=== PATIENT | female | born 1980 | race Caucasian/White ===

== ENCOUNTER 2024-04-10 12:54 | Emergency (ER) | payer OTHER, SELFPAY ==
[2024-04-10 13:09] VITALS: BP 122/70; PULSE 93; RESP 18; TEMP 37.8; O2SAT 100
[2024-04-10 13:11] VITALS: BP 122/70; PULSE 93; RESP 18; TEMP 37.8; O2SAT 100
--- NOTE | 2024-04-10 13:25 | ED.EXTPRO ---
HPI - Extremity Problem General Chief complaint: Extremity Problem,Nontraumatic Stated complaint: knee injury Time Seen by Provider: 04/10/24 13:25 Source: patient Mode of arrival: ambulatory Limitations: no limitations History of Present Illness HPI Narrative: 43-year-old female presents with complaint of left knee pain. Patient riding on a lawnmower that came to a sudden stop when it hit a hole patient stopped herself from falling off and stepped down hard onto left foot causing left knee to twist. Patient reports taking ibuprofen prior to arrival. States pain is better since resting in wheelchair. Ambulatory with slight limp. All systems reviewed and negative except as noted above. Related Data Home Medications Medication Instructions Recorded Confirmed No Home Medications 04/10/24 04/10/24 Allergies Allergy/AdvReac Type Severity Reaction Status Date / Time Sulfa (Sulfonamide Allergy Unknown Verified 04/10/24 13:10 Antibiotics) Review of Systems Review of Systems: CONSTITUTIONAL: Denies fever, chills, or sweats. EYES: Denies visual changes, redness, or discharge. ENT: Denies rhinorrhea, congestion, sore throat, or otalgia. CARDIOVASCULAR: Denies chest pain, palpitations, or edema. RESPIRATORY: Denies cough or dyspnea. GASTROINTESTINAL: Denies abdominal pain, nausea, vomiting, or diarrhea. GENITOURINARY: Denies dysuria or hematuria. SKIN: Denies rash or itching. MUSCULOSKELETAL: Denies back pain, joint pain, or myalgia. Reports pain to left knee. NEUROLOGIC: Denies headache, numbness, or weakness. PSYCHIATRIC: Denies anxiety or depression. All other systems reviewed are negative, except as documented in HPI. PMFSH Comments At time of signature, agree with nursing past medical, surgical, social and family history. There is no relevant family history pertinent to the presenting complaint. Exam Narrative: GENERAL: This is a well-nourished, well-developed patient, in no apparent distress. HEAD: normocephalic, atraumatic. EYES: PERRL. Sclera clear/white. Vision is grossly intact. EARS: External ears normal NOSE: External nose normal NECK: Neck supple, non-tender without lymphadenopathy, masses or thyromegaly. CARDIOVASCULAR: Regular rate and rhythm without murmurs, gallops, or rubs. RESPIRATORY: Clear to auscultation. Breath sounds equal bilaterally. No wheezes, rales, or rhonchi. SKIN: warm, Dry, intact with no suspicious lesions or rash, good texture and turgor. NEURO: awake, alert, and oriented to person, place and time. There were no obvious focal neurologic abnormalities. EXTREMITIES: No tenderness on palpation of left knee. Anterior and posterior drawer testing negative. Normal range of motion and distal neurovascularly intact. Course Course Level of Care: Express Care Visit Vital Signs Vital signs: Vital Signs Temperature 37.8 C H 04/10/24 13:09 Pulse Rate 93 04/10/24 13:09 Respiratory Rate 18 04/10/24 13:09 Blood Pressure 122/70 04/10/24 13:09 Pulse Oximetry 100 04/10/24 13:09 Oxygen Delivery Room Air 04/10/24 13:09 Temperature 37.8 C H 04/10/24 13:11 Pulse Rate 93 04/10/24 13:11 Respiratory Rate 18 04/10/24 13:11 Blood Pressure 122/70 04/10/24 13:11 Pulse Oximetry 100 04/10/24 13:11 Oxygen Delivery Room Air 04/10/24 13:11 Reviewed MDM - Extremity (Nontraumatic) MDM Narrative Medical decision making narrative: x-ray of left knee normal. Discussed results with patient. Patient placed in Fox wrap. Recommend follow-up with primary care physician if pain is not improving. Patient is aware of diagnosis, understands and agrees to treatment plan. Anticipatory guidance given. Patient agrees to follow-up as directed and is aware of reasons to seek care at the emergency department. Portions of this record may have been created with voice recognition software Imaging Data My impression: Agree with radiologist R
== END 2024-04-10 13:52 | disposition home or self-care (01) ==
PROVIDERS: Emergency Provider Nurse Practitioner Family
DX: S83.92XA Sprain of unspecified site of left knee, initial encounter (principal); X50.9XXA Other and unspecified overexertion or strenuous movements or postures, initial encounter
CPT/HCPCS: 73562; 99203; G0463

== ENCOUNTER 2024-10-10 15:32 | Emergency (ER) | payer OTHER, SELFPAY ==
--- NOTE | 2024-10-10 15:33 | ED_ITS ---
HPI - URI/Sore Throat General Chief Complaint: Upper Respiratory Infection Stated Complaint: sinus infection Time Seen by Provider: 10/10/24 15:33 Source: patient Mode of arrival: ambulatory Limitations: no limitations History of Present Illness HPI Narrative: Lily is a 43-year-old female patient presenting to the clinic today with complaints sinus pressure, nasal congestion, and headache. She reports her symp toms have been going on for for over 1 week. Is blowing out green nasal drainage. Has been taking Mucinex D as well as Tylenol and ibuprofen for her symptoms. MD elicited complaint: rhinorrhea, nasal congestion and sinus pain Related Data Allergies Allergy/AdvReac Type Severity Reaction Status Date / Time Sulfa (Sulfonamide Allergy Unknown Verified 10/10/24 15:40 Antibiotics) Review of Systems Review of Systems: Pertinent positives per HPI. Patient denies any fever, chills, rash, headache, visual changes, dizziness, cough, shortness of breath, chest pain, palpitations, nausea, vomiting, diarrhea, constipation, abdominal pain, or any urinary issues. PMFSH Comments At the time of my signature, I reviewed and agree with the nursing past medical, surgical, social, and family history. There is no relevant family history pertinent to the patient complaint. Exam Narrative: General: Well-developed, well nourished, in no apparent distress Head: Normocephalic, atraumatic Eyes: Pupils equally round and reactive to light bilaterally, EOM intact, sclera and conjunctive clear, no discharge, lids normal Ears: TMs intact and congested, ear canals clear, no drainage, grossly hearing normal. Nose: Nares patent, green nasal discharge, moderate inflammation, maxillary sinus tenderness. Mouth: Oral pharynx without lesions or masses, good dentition, MMM. Postnasal drip Neck: Supple, trachea midline, no enlargement of anterior or posterior cervical nodes, no thyroid masses or goiter palpable. Cardio: Regular rate and rhythm, s1 and s2 normal, no murmur appreciated. Resp: Clear to auscultation bilaterally, no rhonchi, rales, wheezing or rubs Course Course Emergency Course: Portions of this record may have been created with voice recognition software. Level of Care: Express Care Visit Vital Signs Vital signs: Vital Signs Temperature 36.2 C L 10/10/24 15:39 Pulse Rate 70 10/10/24 15:39 Respiratory Rate 18 10/10/24 15:39 Blood Pressure 124/85 10/10/24 15:39 Pulse Oximetry 100 10/10/24 15:39 Oxygen Delivery Room Air 10/10/24 15:39 Temperature 36.2 C L 10/10/24 15:39 Pulse Rate 70 10/10/24 15:39 Respiratory Rate 18 10/10/24 15:39 Blood Pressure 124/85 10/10/24 15:39 Pulse Oximetry 100 10/10/24 15:39 Oxygen Delivery Room Air 10/10/24 15:39 Vital signs reviewed MDM - URI/Sore Throat MDM Narrative Medical decision making narrative: At the time of visit patient is resting comfortably on the exam table. Patient appears to be nontoxic. Plan: I suspect patient has acute bacterial rhinosinusitis. Prescription for Augmentin and prednisone was sent to the pharmacy. Supportive measures were discussed with the patient and they voiced understanding discharge instructions and agrees to treatment plan. Return precautions reviewed Differential Diagnosis Differential diagnosis: Likely upper respiratory infection, otitis media, sinusitis, viral infection, bronchitis, influenza, pharyngitis and other (COVID) Discharge Plan Discharge Clinical Impression: Acute bacterial rhinosinusitis Patient Disposition: Home, Self-Care Condition: Stable Instructions: Antibiotic Form, Rhinosinusitis (ED) Additional Instructions: Take prescription medications only as prescribed-Augmentin and prednisone Increase fluids and stay well hydrated Tylenol/motrin for pain/fever Flonase and OTC antihistamines as directed Vicks vapor rub to open sinuses Sinus rinses for congestion Cepacol spray, cough drops, throat lozenges, warm tea with honey/lemon, gargle salt water to soothe throat BRAT diet for diarrhea Clear liquids x 24 hours then advance as tolerated for nausea/vomiting Go to the ED if you develop a worsening in your condition- high fever not controlled by Tylenol or Motrin, dehydration, weakness, lethargy, shortness of breath, or chest pain. Follow up with your PCP in 3-5 days if symptoms persist. Patient Language: Ivorian Prescriptions: New prednisone 20 mg tablet 40 mg PO DAILY 5 Days Qty: 10 0RF amoxicillin-pot clavulanate 875-125 mg tablet 1 tablet PO Q12H 10 Days Qty: 20 0RF Follow-up/Referrals: Marco A,Roma Shanks MD [Primary Care Provider] - Time of Disposition: 15:45 Quality NIHSS Nursing Documentation ED NIHSS nursing documentation: reviewed/agree
[2024-10-10 15:39] VITALS: BP 124/85; PULSE 70; RESP 18; TEMP 36.2; O2SAT 100
--- OUTSIDE RECORDS SUMMARY | 2024-10-10 16:40 | XMS_ITS | Encounter Summary ---
Author Organization [facility] Address [address] [place] [id number] Care Team Providers Care [facility] Nurse Practitioner Name Role Phone Roma Strickland MD Primary Care Provider + Encounter Details Date Type Department Care Team (Late Contact Info) Description 06/20/2024 [email or web address] Message Enc [facility] [address] [place], [place] [phone] [place] [address] [place], [place] [phone] MRI Social History Tobacco Use Types Packs/Day Years Used Date Smoking Tobacco: Never Passive Smoke Exposure: Past Smokeless Tobacco: Never Alcohol Use Standard Drinks/Week Comments Yes 5 (1 standard drink = 0.6 oz pur e alcohol) socially PHQ-2 Answer Date Recorded Patient Health Questionnaire-2 Score 0 03/07/2024 Comments No Sex and Gender Information Value Date Recorded Sex Assigned at Not on file Legal Sex Female 7:35 PM CDT Gender Identity Not on file Sexual Orientation Not on file 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 Not on file Not on file Not on f ile documented as of this encounter Plan of Treatment Upcoming Encounters Date Type Department Care Team (Late Contact Info) Description 03/11/2025 9:00 AM CDT Allied Health/Nurse Visit [facility] Family Medicine [facility] [address] [place], [place] [id number] Roma Strickland MD [address] [place], [place] [phone] 03/18/2025 8:00 AM CDT Office Visit [facility] Family Medicine - [facility] [address] [place] [phone] Roma Strickland MD [address] [place] [phone] documented as of this encounter Visit Diagnoses Not on filedocumented in this encounter Care Teams [facility] Nurse Practitioner Relationship Specialty Start Date End Date Roma Strickland MD [address] [place] [phone] PCP - General FAMILY PRACTICE 03/07/24 documented as of this encounter
--- OUTSIDE RECORDS SUMMARY | 2024-10-10 16:41 | XMS_ITS | Clinical Summary ---
Author Organization [facility] Address [address] [place] [address] Care Team Providers Care Boat Hop Name Role Phone Roma Kothari MD Primary Care Provider + Allergies Active Allergy Reactions Criticality Noted Date Comments Sulfa Antibiotics Unknown 04/21/2006 As a child updated [id number] tldn Medications fluticasone propionate (FLONASE) 50 MCG/ACT nasal spray 1 spray by Nasal route daily. Active Naproxen Sodium (ALEVE) 220 MG Cap 04/11/2024 Active Active Problems Problem Noted Date Diagnosed Date Left knee pain 06/04/2024 Encounters Date Type Department Care Team Description 09/02/2024 Telephone [facility] Family Medicine [facility] [address] [facility] [address] [place] [address] Roma Kothari MD Referral Request 08/08/2024 7:30 AM FIRE LOOKOUT - 08/08/2024 11:59 PM FIRE LOOKOUT Hospital Encounter [facility] [address] [place] [address] Barby Cates, PT Roma Kothari MD Knee Pain Discharge Disposition: Home or Self Care (Routine Discharge) 08/08/2024 Travel 07/29/2024 8:58 AM FIRE LOOKOUT - 07/29/2024 11:59 PM FIRE LOOKOUT Hospital Encounter [facility] [address] [place], [place] [id number] Barby Cates PT Roam Kothari MD Knee Pain Discharge Disposition: Home or Self Care (Routine Discharge) 07/29/2024 Travel 07/25/2024 7:27 AM FIRE LOOKOUT - 07/25/2024 11:59 PM FIRE LOOKOUT Hospital Encounter [facility] [address] [place] [address] Barby Cates, PT Roma Kothari MD Knee Pain Discharge Disposition: Home or Self Care (Routine Discharge) 07/25/2024 Travel 07/23/2024 9:00 AM FIRE LOOKOUT Office Visit [facility] Orthopedic & Sports Medicine - [address] [address] Everardo Abrams MD New Patient (Lt knee pain) 07/23/2024 Travel 07/22/2024 7:30 AM FIRE LOOKOUT - 07/22/2024 11:59 PM FIRE LOOKOUT Hospital Encounter [facility] [address] [place] [address] Barby Cates, PT Roma Kothari MD Knee Pain Discharge Disposition: Home or Self Care (Routine Discharge) 07/22/2024 Travel 07/18/2024 8:19 AM FIRE LOOKOUT - 07/18/2024 11:59 PM FIRE LOOKOUT Hospital Encounter [facility] [place] [address] [place] [address] Roma Kothari MD Discharge Disposition: Home or Self Care (Routine Discharge) 07/18/2024 7:25 AM FIRE LOOKOUT - 07/18/2024 8:18 AM FIRE LOOKOUT Hospital Encounter [facility] [address] [place] [address] Sherie Hinson, PT Roma Kothari MD Knee Pain Discharge Disposition: Home or Self Care (Routine Discharge) 07/18/2024 Travel 07/15/2024 7:27 AM FIRE LOOKOUT - 07/15/2024 11:59 PM FIRE LOOKOUT Hospital Encounter [facility] [address] [place] [address] Babry Cates, PT Roma Kothari MD Knee Pain Discharge Disposition: Home or Self Care (Routine Discharge) 07/15/2024 Travel from Last 3 Months Immunizations Name Administration Dates Next Due Influenza (FluMist) 07/17/2014,06/28/2006 Influenza (Generic) 05/28/2013, 2,06/02/2011,06/21/2010,2004 Influenza Adult (Generic) 06/07/2023,04/2022,06/08/2021,05/15/2020,2018,06/08/2018,05/23/2017 [place] Encephalitis 10/11/2016 Tdap (Boostrix) 03/07/2024 Family History Medical History Relation Comments No Known Problems Child 1 No Known Problems Child 2 No Known Problems Child 3 Diabetes Father Hypertension Father Hypertension Mother Diabetes Paternal Grandfather Breast Cancer Paternal Grandmother Relation Status Comments Child 1 Alive Child 2 Alive Child 3 Alive Father Alive Mother Alive Paternal Grandfather Paternal Grandmother Social History Tobacco Use Types Packs/Day Years Used Date Smoking Tobacco: Never Passive Smoke Exposure: Past Smokeless Tobacco: Never Tobacco Cessation:Counseling Given: No Alcohol Use Standard Drinks/Week Comments Yes 5 [...] Not on file Not on f ile Last Filed Vital Signs Vital Sign Reading Time Taken Comments Blood Pressure 127/82 07/23/2024 8:50 AM FIRE LOOKOUT Pulse 54 07/23/2024 8:50 AM FIRE LOOKOUT Temperature 36.7 C (98 F) 05/24/2024 10:11 AM CDT Respiratory Rate 18 05/24/2024 10:11 AM CDT Oxygen Saturation 97% 05/24/2024 10:11 AM CDT Inhaled Oxygen Concentration - - Weight 64.1 kg (141 lb 6.4 oz) 07/23/2024 8:50 A M FIRE LOOKOUT Height 162.6 cm (5' 4 ) 07/23/2024 8:50 AM FIRE LOOKOUT Body Mass Index 24.27 07/23/2024 8:50 AM FIRE LOOKOUT Plan of Treatment Upcoming Encounters Date Type Department Care Team (Late st Contact Info) Description 03/11/2025 9:00 AM CDT Allied Health/Nurse Visit [facility] [address] [place] [address] [address] [place] [address] Roma Kothari MD [address] [place] [phone] 03/18/2025 8:00 AM CDT Office Visit [facility] [address] [facility] [address] [place], [place] [id number] Roma Kothari MD [address] [facility] [address] [place] [phone] Health Maintenance Due Date Last Done Comments Hepatitis C 2000 Hepatitis B Vaccines (1 of 3 - 19+ 3-dose series) 2001 COVID-19 Vaccine ( season) 2024 Influenza Adult (#1) 2024 06/07/2023, 06/15/2022, 06/08/2021, Additional history exists PHQ-2 (Physician [place]) 08/07/2024 03/07/2024 Annual Physical 03/07/2025 03/07/2024 Mammogram Screening 03/27/2026 03/27/2024 Cervical Cancer Screening Pap Smear (Age 30 to 64) Every 3 Years 03/07/2027 03/07/2024 Cervical Cancer Screening Pap with HPV Testing (Age 30 to 64) Every 5 Years 03/07/2027 03/07/2024 Cervical Cancer Screening with HPV 03/07/2027 DTaP, Tdap and Td Vaccines (2 - Td or Tdap) 03/07/2034 03/07/2024 HPV Vaccines Aged Out No longer eligi ble based on patient's age to complete this topic Meningococcal B Vaccine Aged Out No l onger eligible based on patient's age to complete this topic Meningococcal Vaccine Aged Out No minal yady eligible based on patient's age to complete this topic Pneumococcal Vaccine: Pediatrics (0 to 5 Years) and At-Risk Patients (6 to 64 Years) Aged Out No longer eligible based on patient's age to complete this topic RSV Immunizations Under 20 Months Aged Out No longer eligible based on patient's age to complete this topic Procedures Procedure Name Priority Date/Time Associated Diagnosis Comments MRI KNEE LT WO CON Routine 07/18/2024 9: 37 AM FIRE LOOKOUT Acute pain of left knee MG SCREENING W AYAZ BARBARA DIGI Routine 03/27/2024 12:52 PM CDT Encounter for mammogram to establish baseline mammogram CYTOPATH CERV/VAG THIN LAYER Routine 03/07/2024 2:32 PM CDT HUMAN PAPILLOMAVIRUS, HIGH-RISK TYPES Routine 03/07/2024 8:00 AM CDT from Last 3 Months or Most Recently Relevant to Health Maintenance Results * MRI KNEE LT WO CON (07/18/2024 9:37 AM FIRE LOOKOUT) Anatomical Region Laterality Modality Knee Magnetic Resonan ce 07/18/2024 10:4 8 AM FIRE LOOKOUT Impressions 07/18/2024 11:06 AM FIRE LOOKOUT IMPRESSION: Probable occult oblique linear tear to the inferior surface body lateral meniscus. Small joint effusion. Small popliteal cyst. Ordered By: ROMA KOTHARI Interpreted By: Deejay Rivas MD, 07/18/2024 10:48 AM Narrative 07/18/2024 11:06 AM FIRE LOOKOUT [facility] [address] [place] [address] 07/18/2024, 9:32 AM. HISTORY: Twisting injury when fell off the lungs more April 2024. Medial and posterior left knee pain. Unable to fully flex. EXAM: MRI left knee without contrast. MR imaging was performed without contrast with images submitted for review in the axial, the coronal and the sagittal planes. No comparison. FINDINGS: Detail is suboptimal. On the fat sat proton density coronal plane image there is a suggestion of an oblique tear in the body of the medial meniscus extending to the inferior surface image 18. This is not confirmed on sagittal plane imaging. No other evidence of meniscal tear. No thinning of the articular cartilage on the femoral condyles, tibial plateaus nor dorsal patellar surfaces. The cruciate ligaments, medial collateral ligament, distal quadriceps tendon and patellar tendons are intact and normal in appearance. Tiny joint effusion. Very small popliteal cyst on the deep and medial surfaces of the medial head of the gastrocnemius. No marrow replacement or gross bone destruction distal femur nor proximal tibia. No periarticular soft tissue mass. Procedure Note Deejay Rivas MD - 07/18/2024 [facility] [address] [place] [address] 07/18/2024, 9:32 AM. HISTORY: Twisting injury when fell off the lungs more April 2024.Medial and posterior left knee pain. Unable to fully flex. EXAM: MRI left knee without contrast. MR imaging was performed without contrast with images submitted for reviewin the axial, the coronal and the sagittal planes. No comparison. FINDINGS: Detail is suboptimal. On the fat sat proton density coronalplane image there is a suggestion of an oblique tear in the body of themedial meniscus extending to the inferior surface image 18. This is notconfirmed on sagittal plane imaging. No other evidence of meniscal tear.No thinning of the articular cartilage on the femoral condyles, tibialplateaus nor dorsal patellar surfaces. The cruciate ligaments, medialcollateral ligament, distal quadriceps tendon and patellar tendons areintact and normal in appearance. Tiny joint effusion. Very small poplitealcyst on the deep and medial surfaces of the medial head of thegastrocnemius. No marrow replacement or gross bone destruction distalfemur nor proximal tibia. No periarticular soft tissue mass. IMPRESSION: Probable occult oblique linear tear to the inferior surface body lateralmeniscus. Small joint effusion. Small popliteal cyst. Ordered By: ROMA KOTHARI Interpreted By: Deejay Rivas MD, 07/18/2024 10:48 AM us Roma Kothari MD MRI Final Re sult * MG SCREENING W AYAZ BARBARA DIGI (03/27/2024 12:52 PM CDT) Anatomical Region Laterality Modality Breast Bilateral Mammography 03/27/2024 3:58 PM CDT Impressions 03/27/2024 4:01 PM CDT IMPRESSION: No suspicious mammographic findings. Recommendation: 1. Routine Screening, Bilateral Assessment: ACR BI-RADS 2 - BENIGN FINDING(S) Ordered By: ROMA KOTHARI Interpreted By: Trevin Green MD, 03/27/2024 3:58 PM Narrative 03/27/2024 4:01 PM CDT Examination: Screening bilateral mammogram Exam Date: 03/27/2024 12:38 PM Clinical history: Routine screening. Baseline exam. Family history of breast cancer in her grandmother. Comparison: None. Technique: Digital screening mammography of both breasts was performed. Breast tomosynthesis acquisitions were obtained and reviewed. This study was read with the assistance of a computer-aided detection system. Tissue density: There are scattered areas of fibroglandular density. Findings: The breast parenchymal pattern is grossly symmetric. There are no suspicious calcifications, masses, architectural distortion or skin thickening on either side. Procedure Note Trevin Green MD - 03/27/2024 Examination: Screening bilateral mammogram Exam Date: 03/27/2024 12:38 PM Clinical history: Routine screening. Baseline exam. Family history ofbreast cancer in her grandmother. Comparison: None. Technique: Digital screening mammography of both breasts was performed.Breast tomosynthesis acquisitions were obtained and reviewed. This studywas read with the assistance of a computer-aided detection system. Tissue density: There are scattered areas of fibroglandular density. Findings: The breast parenchymal pattern is grossly symmetric. There areno suspicious calcifications, masses, architectural distortion or skinthickening on either side. IMPRESSION: No suspicious mammographic findings. Recommendation: 1. Routine Screening, Bilateral Assessment: ACR BI-RADS 2 - BENIGN FINDING(S) Ordered By: ROMA KOTHARI Interpreted By: Trevin Green MD, 03/27/2024 3:58 PM us Roma Kothari MD MAMMO Final Re sult * Cytopath Cerv/Vag Thin Layer (03/07/2024 2:32 PM CDT) THIN PREP PAP [address] [id number] Department of Pathology Pathology Report CERVICAL/VAGINAL PAP SMEAR REPORT Name: ANGELICA KEVIN Age: 3 1980 (Age: 43) Location: [facility] Sex: F Collected Date: 03/07/2024 Hospital #: [id number] Date Received: 03/08/2024 Date Reported: 03/15/2024 Provider: ROMA KOTHARI MD INTERPRETATION ABNORMAL RESULT CERVICAL/ENDOCERVI KIERA, PAP TEST: SATISFACTORY FOR EVALUATION. ENDOCERVICAL/TRANS FORMATION ZONE COMPONENT PRESENT. ATYPICAL SQUAMOUS CELLS OF UNDETERMINED SIGNIFICANCE. NEGATIVE FOR HIGH RISK HPV. The FDA approved Aptima HPV assay is an in vitro nucleic acid amplification test for the qualitative detection of E6/E7 viral messenger RNA (mRNA) from 14 high-risk types of human papillomavirus (HPV) in cervical specimens. The high-risk HPV types detected by the assay include: 16,18,31,33,35,39, 45,51,52,56,58,59, 66, and 68. Electronically Signed Out JENNIFER Paulson, CT (ASCP) CLINICAL HISTORY (Z12.4) CERVICAL CANCER SCREENING ROUTINE PAP TEST SCREENING ThinPrep Pap Test with HR HPV testing in patient > 30 years requested. Date of Last Menstrual Period: 02/15/2024 Menstrual Status: Regular SPECIMEN SUBMITTED CERVICAL/ENDOCERVI KIERA Specimen Received:1 Thin Prep Vial, Image Assisted Pap (SMD) GROSS DESCRIPTION Initial cytologic screening was performed at [facility] [address] [place] [address]. This case was interpreted and signed out at [facility], [address] [facility], [place] [address]. Please note: The Pap smear is not a diagnostic test. It is a screening test. Negative results on combined screening (Pap test and HPV-DNA) have a high negative predictive value (99.1-100 percent) for cervical cancer. The pap test is not effective in detecting cervical adenocarcinoma. [facility] 03/07/2024 2:32 PM CDT 03/08/2024 2:32 PM CDT Comment:CERVICAL/ENDOCERVICA L Roma Kothari MD PATHOLOGY/CYTOLOGY ORDER CEM Final Result Performing Organization Address City/[facility]/ZIP Co de Phone Number [facility] [address] [place] [address], [place] [phone] * HUMAN PAPILLOMAVIRUS, HIGH-RISK TYPES (03/07/2024 8:00 AM CDT) SPEC DESCRIPTION ENDOCERVIX 03/11/2024 9:49 AM CDT [facility] HPV DNA HIGH RISK NEGATIVE NEGATIVE 03/12/2024 12:44 AM CDT [facility] Comment:SEE CYTOLOGY REPORT 03/07/2024 8:00 AM CDT Roma Kothari MD PATHOLOGY/CYTOLOGY ORDER CEM Final Result [facility] [address] [place] [address], [place] [phone] from Last 3 Months or Most Recently Relevant to Health Maintenance Insurance Care Teams Boat Hop Relationship Specialty Start Date End Date Roma Kothari MD [address] [place] [id number] PCP - General FAMILY PRACTICE 03/07/24
--- OUTSIDE RECORDS SUMMARY | 2024-10-10 16:41 | XMS_ITS | Continuity of Care Document ---
Author Name [facility] Organization [facility] Care Team Providers Care Take Out Waitress Name Role Phone [facility] Unavailable Unavailable Problems Combined list of problems from Department of Defense and Veterans Affairs facilities. It does not include entries that were removed or entered in error. Problem Status Onset Date Problem Type Date of Resolution Comments Source Administrative Evaluation Services Inactive Condition DoD Inactive Condition [facility] Outpatient Physician Consultation Active Condition DoD cough Active Condition DoD pneumonia Inactive Condition DoD sinusitis acute maxillary Inactive Condition DoD nasal passage blockage (stuffiness) Active Condition [facility] acute bronchitis Inactive Condition [facility] visit for: administrative purpose Inactive Condition [facility] Test Positive Inactive Condition [facility] Test Inactive Condition DoD nausea with vomiting Inactive Condition [facility] Gynecologic Services Intrauterine Device (IUD) Removal Inactive Condition [facility] sinusitis Active Condition [facility] urticaria Inactive Condition no clear etiology. no associated angioedema/joni phylaxis. OCP was changed 2 weeks prior to onset so I changed back. zyrtec QHS for sx relief/will help if IgE medicated. Allergy consult to further assess. DoD Inquiry And Counseling: Contraceptive Practices Active Condition refill OCP. no contraindicati ons. pap current. [facility] routine gynecological exam with cervical pap smear Inactive Condition 1- Pap exam was well tolerated. No further concerns noted by patient DoD TMJ pain Active Condition pt had jaw pop last week, and had pain, some pain on right side with jaw opening. advised to limit trying to pop jaw and take nsaids to reduce inflammation. likely will resolve on its own.. Pt ground teeth during college a lot, likely part of it.No trauma or damage to jaw that she can remember. DoD visit for: follow-up exam Inactive Condition computer woul d not let me code v53.1-fitting/ SCLRx DoD astigmatism regular Active Condition Do D refractive error - myopia Active Condition [facility] visit for: routine eye exam Inactive Condition DoD visit for: contraceptive surveillance Active Condition Planned Pap Smear in Sep-Oct 2006. DoD tuberculosis latent Active Condition pt finished 9 months of INH/pyridoxine after +ppd in March 2006. started meds in 21 Apr 2006. has not missed doses, minimal alcohol (once a month), no signs or symptoms. advised that she may drink this weekend as last dose was last night. will get final LFTs to eval for any liver damage, none throughout per pt. normal exam. cleared. DoD Allergies, Adverse Reactions, Alerts Combined list of allergies from Department of Defense and Veterans Affairs facilities. It does not include entries that were removed or entered in error. Substance Category Reaction Severity Reaction type Status Date Reported Comments Source Sulfa-Drug s Drug allergy (disorder) Unknown active 6 [employer] [facility] Sulfa-Drug s Propensity to adverse reactions to drug Unknown Active 6 updated [id number] tldn Unknown Organization Immunizations Combined list of available immunizations from the Department of Defense and Veterans Affairs facilities. Immunization Series Date Given Administered By Site Reaction Lot Number CVX Code Drug Shelf Drier Operator Status Comments Source influenza virus vaccine, inactivated 2022 DAJUAN Trinidad justin, left (delt oid) [id number] 150 [employer], A [employer] complet ed influenza virus vaccine, inactivat ed 06/07/23 Given [id number] F-C-42n d [facility]- [place] influenza, injectable, quadrivalent- pf 2021 zzLef t Arm [id number] 150 GlaxoSmithKli ne complet ed influenza , injectabl e, quadrival ent-pf 06/15/22 Given Ambulat ory Pharmac y Influenza, injectable, quadrivalent, preservative free 1 2021 Unknown, Provider [id number] 150 SmithKljavier (SKB) complet ed Influenza , injectabl e, quadrival ent, preservat mario free DoD COVID Vaccine Moderna 2020 [id number] [id number] 207 complet ed COVID Vaccine Moderna 07/23/21 Given Ambulat ory Pharmac y SARS-COV-2 (COVID-19) vaccine, mRNA, spike protein, LNP, preservative free, 100 mcg or 50 mcg dose 3 2020 Unknown, Provider 207 Moderna OffersBy.Me, Inc. (MOD) complet ed SARS-COV- 2 (COVID-19 ) vaccine, mRNA, spike protein, LNP, preservat mario free, 100 mcg or 50 mcg dose DoD influenza, injectable, quadrivalent 2020 zzLef t Arm [id number] 158 Infinity Pharmaceuticals[facility] ne complet ed influenza , injectabl e, quadrival ent 06/08/21 Given Ambulat ory Pharmac y influenza, injectable, quadrivalent, contains preservative 1 2020 Unknown, Provider [id number] 158 Geovani (SKB) complet ed influenza , injectabl e, quadrival ent, contains preservat mario DoD COVID Vaccine Moderna 2020 zzLef t Arm [id number] 207 complet ed COVID Vaccine Moderna 11/24/20 Given Ambulat ory Pharmac y SARS-COV-2 (COVID-19) vaccine, mRNA, spike protein, LNP, preservative free, 100 mcg or 50 mcg dose 2 2020 TR, SUGAR A [id number] 207 Moderna US, Inc. (MOD) complet ed SARS-COV- 2 (COVID-19 ) vaccine, mRNA, spike protein, LNP, preservat mario free, 100 mcg or 50 mcg dose DoD COVID Vaccine Moderna [facility] [id number] 207 complet ed COVID Vaccine Moderna 10/29/20 Given Ambulat ory Pharmac y SARS-COV-2 (COVID-19) vaccine, mRNA, spike protein, LNP, preservative free, 100 mcg or 50 mcg dose 1 2020 TR, SUGAR A [id number] 207 Moderna US, Inc. (MOD) complet ed SARS-COV- 2 (COVID-19 ) vaccine, mRNA, spike protein, LNP, preservat mario free, 100 mcg or 50 mcg dose DoD influenza, injectable, quadrivalent- pf 2019 zzLef t Arm [id number] 206 150 Seqirus complet ed influenza , injectabl e, quadrival ent-pf 05/15/20 Given Ambulat ory Pharmac y Influenza, injectable, quadrivalent, preservative free 1 2019 Unknown, Provider [id number] 150 Seqirus (SEQ) complet ed Influenza , injectabl e, quadrival ent, preservat mario free DoD influenza, injectable, quadrivalent- pf 2018 zzLef t Arm [id number] 520 150 Seqirus complet ed influenza , injectabl e, quadrival ent-pf 05/10/19 Given Ambulat ory Pharmac y Influenza, injectable, quadrivalent, preservative free 1 2018 Unknown, Provider [id number] 520 150 Seqirus (SEQ) complet ed Influenza , injectabl e, quadrival ent, preservat mario free DoD influenza, injectable, quadrivalent- p[facility] [id number] 150 GlaxoSmithKli ne complet ed influenza , injectabl e, quadrival ent-pf 06/08/18 Given Ambulat ory Pharmac y Influenza, injectable, quadrivalent, preservative free 1 2017 Unknown, Provider [id number] 150 SmithKline (SKB) complet ed Influenza , injectabl e, quadrival ent, preservat mario free DoD influenza, injectable, quadrivalent [address] [facility] [id number] 158 GlaxoSmithKli ne complet ed influenza , injectabl e, quadrival ent 05/23/17 Given Ambulat ory Pharmac y influenza, injectable, quadrivalent, contains preservative 1 2016 Unknown, Provider [id number] 158 SmithKline (SKB) complet ed influenza , injectabl e, quadrival ent, contains preservat mario DoD [place] Islander Encephalitis IM 2016 zzLef t Arm [id number] 134 Valneva complet ed [place] Encephali tis IM 10/11/16 Given Ambulat ory Pharmac y [place] Encephalitis vaccine for intramuscular administratio n 1 2016 Unknown, Provider [id number] 134 Valneva (AMY) complet ed [place] Encephali tis vaccine for intramusc ular administr ation DoD influenza, live, intranasal,qu adrivalent 2013 [id number] Medimmune Inc comple t ed influenza , live, intranasa l,quadriv alent 07/17/14 Given Ambulat ory Pharmac y influenza, live, intranasal, quadrivalent 1 2013 Unknown, Provider [id number] 149 MedImmune, Inc. (MED) complet ed influenza , live, intranasa l, quadrival ent DoD influenza, seasonal, injectable 2012 zzLef t Arm [id number] 141 sanofi pasteur complet ed influenza , seasonal, injectabl e 05/28/13 Given Ambulat ory Pharmac y Influenza, seasonal, injectable 1 2012 Unknown, Provider [id number] 141 Sanofi Pasteur (PMC) complet ed Influenza , seasonal, injectabl e DoD influenza, seasonal, injectable 2011 141 sanofi pasteur complet ed influenza , seasonal, injectabl e 05/12/12 Given Ambulat ory Pharmac y influenza, seasonal, injectable 2010 zSrinivasa ht Arm [id number] 141 sanofi pasteur complet ed influenza , seasonal, injectabl e 06/02/11 Given Ambulat ory Pharmac y Influenza, seasonal, injectable 3 2010 Unknown, Provider [id number] 141 Sanofi Pasteur (PMC) complet ed Influenza , seasonal, injectabl e DoD influenza, seasonal, injectable 2009 141 Novartis Pharmaceutica ls complet ed influenza , seasonal, injectabl e 06/21/10 Given Ambulat ory Pharmac y influenza virus vaccine, live 2005 [id number] 111 Sunrise Atelier Inc comple t ed influenza virus vaccine, live 06/28/06 Given Ambulat ory Pharmac y influenza virus vaccine, live, attenuated, for intranasal use 1 2005 Unknown, Provider [id number] 111 Beyond [employer]iance, [employer]. (MED) complet ed influenza virus vaccine, live, attenuate d, for intranasa l use DoD influenza virus vaccine,split 2004 zzLef t Arm [id number] 15 sanofi pasteur complet ed influenza virus vaccine,s plit 07/04/05 Given Ambulat ory Pharmac y influenza virus vaccine, split virus (incl. purified surface antigen)-reti red CODE 1 2004 Unknown, Provider [id number] 15 Sanofi Pasteur (PMC) complet ed influenza virus vaccine, split virus (incl. purified surface antigen)- retired CODE DoD Encounters Combined list of: 1) Encounters from Department of Veterans Affairs facilities going backup to the last 18 months, not all VA inpatient encounters are included; 2) Encounters from the Department of Defense facilities going backup to 280 months. Location Location Details Encounter Type Encounter Number Reason For Visit Attending Provider ADM Date DC Date Status Disposition Source [employer](Aer ospace Medicine) OUTPATIENT [id number] DISCUSS MEDS FOR TB SINCE MIDDLE OF [place] MOHAN PÉREZ 04/21 Released w/o Limitations [employer](A erospac e Medicin e) [employer](Aer ospace Medicine) OUTPATIENT [id number] annual exam OMAR ARMANDO 07/17 Released w/o Limitations [employer](A erospac e Medicin e) [employer](Opt ometry) OUTPATIENT [id number] routine THADDEUS CABRERA 07/26 Released w/o Limitations [employer](O ptometr y) [employer](Opt ometry) OUTPATIENT [id number] cl fu THADDEUS CABRERA 08/28 Released w/o Limitations [employer](O ptometr y) [employer]([facility] Medicine [facility]) OUTPATIENT [id number] f/u for medicat ion LUDIVINA [place] Jose Raul 01/16 Released w/o Limitations [employer](F light Medicin e Clinic) [facility] Medical Group([facility] Medicine Group Practice) OUTPATIENT [id number] Pap test TARA Carter 05/03 Released w/o Limitations [employer](F light Medicin e Group Practic e) [facility] Medical Group([facility] Medicine Group Practice) TELE CONSULT [id number] GA Guy 02/03 [facility] Medical Group(F light Medicin e Group Practic e) [facility] Medical Group([facility] Medicine Group Practice) OUTPATIENT [id number] ADITI Lamb 03/18 Released w/o Limitations [employer](F light Medicin e Group Practic e) [employer] LEONARDO, HARMAN [employer](F light Medicine [employer] [facility]) OUTPATIENT [id number] Sinus Infecti on GOWRING, DINH E 08/20 Released w/o Limitations [employer] [place] [employer] (Flight Medicin e [employer] [facility]) [employer] LEONARDO, [place] [employer](F light Medicine [employer] [facility]) TELE CONSULT [id number] Obgyn referra l GOWRING, DINH E 09/[employer] [place] [employer] (Flight Medicin e [facility]) [employer] [place] [employer](F amily Practice Team 1) TELE CONSULT [id number] nausea, vomitin g x 8 hrs, triage pls [phone]. MERCEDES Werner RN 05/23 [employer] [employer] (Family Practic e Team 1) [employer] [employer]( ynecology Clinic) TELE CONSULT [id number] HCG test SHERYL LUTZ NEO 06/03 [facility] [employer] [employer] (Gyneco logy Clinic) [employer] [employer]( ynecology Clinic) OUTPATIENT [id number] OB REFERRA KAMILLA BERNSTEIN 06/07 Released w/o Limitations [employer] [employer] (Gyneco logy Clinic) [employer] [employer]([facility] Practice Team 1) TELE CONSULT [id number] triage - cold sx, pregnan t, would like advice what she can take.[phone] MERCEDES Werner RN 06/14 [employer] [employer] (Family Practic e Team 1) [employer] [employer]([facility] Team A) TELE CONSULT [id number] Notes Entered by: MEERA DEVI 05 Sep 2011 0731 ------- ------- ------- ------ MERCEDES RENTERIA RN 09/05 [employer] [employer] (Critical access hospital Team A) [employer] [employer]([facility] Team B) OUTPATIENT [id number] nasal-c hest congest ion-soa r SHANI Laws 09/05 Released w/o Limitations [employer] [employer] (Critical access hospital Team B) [employer] [employer]([facility] Team B) TELE CONSULT [id number] Triage pt sick chest congest ion please advise rtn call [phone] thanks MERCEDES Leal RN 09/08 [facility] [employer] [place] [employer] (Critical access hospital Team B) [employer] [employer]([facility] Team B) OUTPATIENT [id number] headach e, pressur e behind ears/ey es, occ wheezin g, deep cough SHANI ARMANDO 09/09 Released w/o Limitations [facility] [employer] [employer] (Critical access hospital Team B) [employer] [place] YOSELYNB, HARMAN [employer]( ynecology [facility]) TELE CONSULT [id number] Notes Entered by: MEKA PATIÑO 28 Jan [id number] ------- ------- ------- ------- -- pregnan cy test KAMILLA GAITAN 01/28 [facility] Group [facility] [employer], [place] [employer] (Gyneco logy Clinic) [employer] [place] YOSELYNB, [place] [employer]( ynecology [facility]) OUTPATIENT [id number] Notes Entered by: Minerva FREEMAN 29 Jan 2013 1007 ------- ------- ------- ------- -- OB KAMILLA Cason 01/29 Released w/o Limitations [employer] [facility] [employer] [employer] (Gyneco logy Clinic) [employer] [place] YOSELYNB, [place] [employer]([facility] Team A) TELE CONSULT [id number] Notes Entered by: REGGIE LUCERO 26 Feb 2013 07 ------- ------- ------- ------- -- Network Results - ER DOS [id number] Labs - 02/2013 RIC JEFF 02/[facility] [employer] [facility] [employer] [employer] ([facility] [employer] [employer]([facility] Team A) OUTPATIENT [id number] Notes Entered by: Minerva FREEMAN 10 May 2013 0931 ------- ------- ------- ------- -- Pregnan cy test/OB referra l RIC JEFF 05/10 Released w/o Limitations [employer] [employer] (Critical access hospital Team A) [employer] [employer]([facility] Team A) TELE CONSULT [id number] Notes Entered by: ORESTES RAM 09 Jul 2013 1349 ------- ------- ------- ------- -- Needs note verifyi ng she is pregnan t so they can get a larger house. [phone] GABRIELLA HAIR 07/09 [employer], [place] [employer] (Critical access hospital Team A) [employer] Group [employer] TOPET[employer], [place] [employer]([facility] Team A) TELE CONSULT [id number] Notes Entered by: ORESTES RAM 06 Nov 2013 1350 ------- ------- ------- ------- -- Network Results - OB - 11/2013 RIC JEFF 11/06 [employer] [employer] (Critical access hospital Team A) [employer] Group [employer] TOPETEB, [place] [employer]([facility] Team A) TELE CONSULT [id number] Notes Entered by: ORESTES RAM 06 Nov 2013 1358 ------- ------- ------- ------- -- Network Results - OB 11/2013 RIC JEFF 11/[employer] [employer] (Tony santana [facility] Team A) [address] [place] [address] [employer] ([facility]Sco tt [facility] FAMRES Tm Blue) TELE CONSULT [id number] Notes Entered by: LISE GARCIAKATHY 18 Nov 2013 0811 ------- ------- ------- ------- -- Transfe r in OB EDC - January 18 VENKATESH MESA 11/[address] [place] [address] Group [employer] ([facility]S cott [facility] Tm Blue) [address] [place] [address] [employer] ([facility])(Sco tt [facility] FAM[facility] Tm Blue) OUTPATIENT [id number] initial /transf er OB @ 34+ wks SONDRA MAURICE 11/19 Released w/o Limitations [address] [place] [address] [employer] ([facility])(S cott [facility] FAM[facility] Tm Blue) [address] [place] [address] [employer] ([facility])(Sco tt [facility] Fam Res Tm Gold) TELE CONSULT [id number] Notes Entered by: SHAHIDA OWENS 29 Nov 2013 1033 ------- ------- ------- ------- -- labs SONDRA MAURICE 11/[address] [place] [address] [employer] ([facility])(S cott [facility] Fam Res Tm Gold) [address] [place] [address] [employer] ([facility])(Sco tt [facility] Tm Blue) OUTPATIENT [id number] 35+4 wk IUP SONDRA MAURICE 12/06 Released w/o Limitations [address] [place] [address] [employer] ([facility])(S cott [facility] FAM[facility] Tm Blue) [address] [place] [address] [employer] ([facility])(Sco tt [facility] FAM[facility] Tm Blue) TELE CONSULT [id number] Notes Entered by: LUIS MESA 11 Dec 2013 1341 ------- ------- ------- ------- -- Lab testing SONDRA MAURICE 12/[address] [place] [address] [employer] ([facility]S cott [facility] Tm Blue) [address] [place] [address] [employer] ([facility])(Sco tt [facility] Tm Blue) OUTPATIENT [id number] 37+4 wk iup, SONDRA STALLINGS 12/20 Released w/o Limitations [facility] [employer] ([facility])(S cott OF FAMRES Tm Blue) [facility] [employer] ([facility])(Sco tt [facility] FAM[facility] Tm Blue) OUTPATIENT [id number] 39+1 wk SONDRA STALLINGS 01/03 Released w/o Limitations [facility] [employer] ([facility])(S cott OF FAMRES Tm Blue) [facility] [employer] ([facility])(Sco tt [facility] FAM[facility] Tm Blue) OUTPATIENT [id number] 40+1 wk SONDRA STALLINGS 01/08 Released w/o Limitations [facility] [employer] ([facility])(S cott [facility] FAM[facility] Tm Blue) [address] [place] [address] Omar LEONARDO ([facility])(Sco tt [facility] FAM[facility] Tm Blue) OUTPATIENT [id number] 6 week post [id number] SONDRA ROMANO 02/25 Released w/o Limitations [facility] [employer] ([facility])(S cott [facility] FAM[facility] Tm Blue) [address] [place] [address] [employer] ([facility])(Sco tt [facility] FAM[facility] Tm Blue) TELE CONSULT [id number] Notes Entered by: GAVIN GOLDMAN 21 Aug 2014 0733 ------- ------- ------- ------- -- Sx nasal congest ion, chest congest ion, Sp [phone] JAYASHREE BEAN 08/21 Medical Group [employer] ([facility]S cott [facility] Tm Blue) [facility] Medical [facility] Omar TOPETEB [facility]Sco tt [facility] FAM[facility] Tm Blue) OUTPATIENT [id number] eval of chest congest ion CHRISTOPHER TAYLOR 08/21 Released w/o Limitations [facility] [employer] ([facility]S cott [facility] Tm Blue) [facility] Medical [facility] [employer] ([facility])(Sco tt [facility] Fam Res Tm Gold) OUTPATIENT [id number] cough throat pain no voice CLEMENTE RIOJAS Courtney 11/10 Released w/o Limitations [facility] Medical Group Omar MALISSA ([facility])(S cott [facility] Fam Res Tm Gold) [address] [place] [address] [facility]) TELE CONSULT [id number] Notes Entered by: MILAGROS SALDANA 12 Nov 2014 0750 ------- ------- ------- ------- -- SX - irritat ed eyes/cr eech/81 [phone]* MONTRELL MOSS 11/[address] [place] [address] Group [facility])([facility]) [address] [place] [address])(Digital Production Manager ecology) OUTPATIENT [id number] control [phone] LELO SCHMID 08/13 Released w/o Limitations [address] [place] [address])(G taty gy) [address] [place] [address])(Digital Production Manager ecology) OUTPATIENT [id number] annual wwe TIM BOYER 10/14 Released w/o Limitations [address] [place] [address] Group [facility])(G ynecopablo gy) [address] [place] [address])([facility] Tm Blue) TELE CONSULT [id number] Notes Entered by: OREN ANTON 2015 1614 ------- ------- ------- ------- -- Network Results - Optomet ry 6 and 6 LUCHO MACHADO 10/18 Medical [facility]) [employer](WILDER Quiroz_[facility]_ Team B N/A) OUTPATIENT [id number] DMIS 0004/ov braulio nicole ce/FAY Cavazos 10/11 Released w/o Limitations [employer]([facility] _ Team B N/A) [employer](Max Exception al Family Mbr Cln) TELE CONSULT [id number] Notes Entered by: TADEO PALM 18 Oct 2016 1510 ------- ------- ------- ------- -- [facility] CESARIO PLEITEZ 10/18 [employer](Minerva ax Matteo onal Family Mbr Cln) [employer](Richie Exception al Family Mbr Cln) OUTPATIENT [id number] [facility] KEYLADARLING ARAGON ANAMARIA 10/19 Released w/o Limitations [employer](Minerva ax Exceptlindy onal Family Mbr Cln) [facility] DIRECT TO [facility] FROM OTHER THAN ER OR [facility] [id number] SANIA DEAN 09/08 DISCHARGED HOME [facility](GILA [facility] Team 1) OUTPATIENT [id number] f/u JUWAN RODRIGUEZ 09/13 Released w/o Limitations [facility] ([facility] Team 1) [facility] A Team) TELE CONSULT [id number] Notes Entered by: BETZAIDA GARCES 19 Sep 2018 0908 ------- ------- ------- ------- -- sym: UTI 2/10px [id number] 0636/KT ANNIE CISSE 09/19 Referred for Appointment [facility] ([facility] A Team) [facility] Team 1) OUTPATIENT [id number] HEIKE Burciaga 09/19 Released w/o Limitations [facility] ([facility] Team 1) [facility] Team 1) OUTPATIENT [id number] 1 F/U JUWAN RODRIGUEZ 09/26 Released w/o Limitations [facility] ([facility] Team 1) [facility] A Team) TELE CONSULT [id number] Notes Entered by: BESSIE GONZALEZ 23 Jan 2019 1312 ------- ------- ------- ------- -- SYM:Abhi ybarranuha/ [phone] [id number]/SD Lavinia SHARMAHANNY GUIDRY 01/23 Advice Assessment [place] [facility] ([facility] A Team) [place] [facility]([facility]) OUTPATIENT [id number] EFMP FMTS LEONARD HINES 09/30 Released w/o Limitations [place] [facility] ([facility]) Procedures Combined list of: 1) Procedures from Department of Veterans Affairs facilities going back up to thelast 18 months, not all VA non-surgical procedures are included; 2) All procedures from the Department of Defense facilities. Procedure Procedure Type Code Date Perfomer Comments Sourc e No data available for this section Ambulatory Pharmacy HEALTH&BEHAV ASSESSMENT (EG, HEALTH-FOC CLINICAL INTERVIEW, BEHAVIORAL OBSERVATIONS, PSYCHOPHYSICOLOGICAL MONITOR, HEALTH-ORIENT QUESTIONNAIRES), EA 15 MIN [id number]-TV-[id number] W THE PATIENT; INIT ASSESSMENT 2016 [facility]D HEALTH&BEHAV ASSESSMENT (EG, HEALTH-FOC CLINICAL INTERVIEW, BEHAVIORAL OBSERVATIONS, PSYCHOPHYSICOLOGICAL MONITOR, HEALTH-ORIENT QUESTIONNAIRES), EA 15 MIN WSOD-HN-RLVO W THE PATIENT; INIT ASSESSMENT 2016 DoD TELE ASSESS & MGT SRV PROV QUAL NONPHYS HLTH CARE PRO TO EST PAT,PARENT,GUARD NOT ORIG REL ASSESS & MGT SRV PROV W/IN PREV 7 DAYS NOR LEAD ASSESS & MGT SRV/PX W/IN NXT 24H/SOON APT; 11-20 MIN MED DIS 2018 DoD TELE ASSESS & MGT SRV PROV QUAL NONPHYS HLTH CARE PRO TO EST PAT,PARENT,GUARD NOT ORIG REL ASSESS & MGT SRV PROV W/IN PREV 7 DAYS NOR LEAD ASSESS & MGT SRV/PX W/IN NXT 24H/SOON APT; 11-20 MIN MED DIS 2018 DoD SCREENING PAPANICOLAOU SMEAR; OBTAINING, PREPARING AND CONVEYANCE OF CERVICAL OR VAGINAL SMEAR TO LABORATORY 2015 DoD TELE ASSESS & MGT SRV PROV QUAL NONPHYS HLTH CARE PRO TO EST PAT,PARENT,GUARD NOT ORIG REL ASSESS & MGT SRV PROV W/IN PREV 7 DAYS NOR LEAD ASSESS & MGT SRV/PX W/IN NXT 24 HR/SOON APT;5-10 MIN MED DIS 2014 [facility] SUBSEQ CARE VISIT () [EXCLS:PATIENTS WHO ARE SEEN FOR A CONDITION UNREL TO / CARE (EG,AN UP RESPIR INFECT;PATIENTS SEEN FOR CONSULTATION ONLY,NOT FOR CONT CARE)] 2013 [facility] SUBSEQ CARE VISIT () [EXCLS:PATIENTS WHO ARE SEEN FOR A CONDITION UNREL TO / CARE (EG,AN UP RESPIR INFECT;PATIENTS SEEN FOR CONSULTATION ONLY,NOT FOR CONT CARE)] 2013 [facility] SUBSEQ CARE VISIT () [EXCLS:PATIENTS WHO ARE SEEN FOR A CONDITION UNREL TO / CARE (EG,AN UP RESPIR INFECT;PATIENTS SEEN FOR CONSULTATION ONLY,NOT FOR CONT CARE)] 2013 [facility] SUBSEQ CARE VISIT () [EXCLS:PATIENTS WHO ARE SEEN FOR A CONDITION UNREL TO / CARE (EG,AN UP RESPIR INFECT;PATIENTS SEEN FOR CONSULTATION ONLY,NOT FOR CONT CARE)] 2013 [facility] INITIAL CARE VISIT (REPORT AT 1ST ENCOUN W HEALTH PROGRAM WRITER PROVIDING OBSTETRIC CARE. REPORT ALSO DATE OF VISIT &,IN A SEPARATE FIELD,THE DATE OF THE LAST MENSTRUAL PERIOD) 2013 [facility] OPHTHALMOLOGICAL SERVICES: MEDICAL EXAMINATION AND EVALUATION, WITH INITIATION OR CONTINUATION OF DIAGNOSTIC AND TREATMENT PROGRAM; COMPREHENSIVE, ESTABLISHED PATIENT, 1 OR MORE VISITS 2006 [facility] DETERMINATION OF REFRACTIVE STATE 2005 [facility] INFLUENZA VIRUS VACCINE, TRIVALENT (IIV3), SPLIT VIRUS, 0.5 ML DOSAGE, FOR INTRAMUSCULAR USE 2004 [facility] Non-Physician Phone Call To Pt/Provider Intermed (11-20 min) Non-Physician Phone Call To Pt/Provider Intermed (11-20 min) [id number] 2018 HANNY CHUNG [facility] Non-Physician Phone Call To Pt/Provider Intermed (11-20 min) Non-Physician Phone Call To Pt/Provider Intermed (11-20 min) [id number] 2018 JIM MARTÍNEZ [facility] Health And Behav A e mt Each 15 Min Initial A e ment Health And Behav Assessmt Each 15 Min Initial Assessment [id number] 2016 DARLING MODI DoD Health And Behav A e mt Each 15 Min Initial A e ment Health And Behav Assessmt Each 15 Min Initial Assessment [id number] 2016 CESARIO PLEITEZ [facility] Screening papanicolaou smear; obtaining, preparing and conveyance of cervical or vaginal smear to laboratory 2015 TIM BOYER [facility] Non-Physician Phone Call To Patient/Provider Brief (5-10min) Non-Physician Phone Call To Patient/Provider Brief (5-10min) [id number] 2014 JAYASHREE BEAN [facility] OB Services Antepartum Care Only Subsequent Single Visit OB Services Antepartum Care Only Subsequent Single Visit [id number] 2013 SONDRA MAURICE OB Services Antepartum Care Only Subsequent Single Visit OB Services Antepartum Care Only Subsequent Single Visit [id number] 2013 SONDRA MAURICE OB Services Antepartum Care Only Subsequent Single Visit OB Services Antepartum Care Only Subsequent Single Visit 0502F 2013 SONDRA MAURICE OB Services Antepartum Care Only Subsequent Single Visit OB Services Antepartum Care Only Subsequent Single Visit 0502F 2013 SONDRA MAURICE OB Services Antepartum Care Only First Visit, With Report OB Services Antepartum Care Only First Visit, With Report 0500F 2013 SONDRA MAURICE Ophthalmological Prior Patient Start Comprehensive Care Ophthalmological Prior Patient Start Comprehensive Care [id number] 2006 THADDEUS CABRERA Prescription And Fitting Bilateral Corneal Lenses (Not For Aphakia) Prescription And Fitting Bilateral Corneal Lenses (Not For Aphakia) [id number] 2006 THADDEUS CABRERA Determination Of Refractive State Determination Of Refractive State 01224 2005 THADDEUS CABRERA Visual Martinez Test Intermediate Examination Visual Martinez Test Intermediate Examination 53273 2005 THADDEUS CABRERA Ophthalmological New Patient Start Comprehensive Care Ophthalmological New Patient Start Comprehensive Care 23499 2005 THADDEUS CABRERA Social History Combined list of available smoking, tobacco, and other social history from Department of Defense and Veterans Affairs facilities. Social History Type Response Date Comment Sourc e This section is an empty social history section. DoD Assessment and Plan Combined list of future care activities from Department of Defense and Veterans Affairs facilities (e.g., assessment and plan notes, appointments, orders, and referrals). Additional future care activities may be listed in the Plan of Care section. Result Assessment and Plan Date Source Assessment and Plan No data available for this section 10/10/2024 Ambulatory Pharmacy Functional Status Combined list of recent functional and cognitive assessments recorded at Department of Defense and Veterans Affairs ([facility]).AL Functional Posey Measurement (FIM) Scale: 1 = Total Assistance (Subject = 0% +), 2 = Maximal Assistance (Subject = 25% +), 3 = Moderate Assistance (Subject = 50% +), 4 = Minimal Assistance (Subject = 75% +), 5 = Supervision, 6 = Modified Posey (Device), 7 = Complete Posey (Timely, Safely). Assessment Date/Time Source Assessment Type Assessment Skill Assessment Score Assessment Details No data available for this section
== END 2024-10-10 15:48 | disposition home or self-care (01) ==
PROVIDERS: Emergency Provider Nurse Practitioner Family; PCP Student in an Organized Health Care Education/Training Program
DX: J01.90 Acute sinusitis, unspecified (principal)
CPT/HCPCS: 99213; G0463

== ENCOUNTER 2025-01-27 09:37 | Emergency (ER) | payer OTHER, SELFPAY ==
[2025-01-27 09:43] VITALS: BP 125/79; PULSE 68; RESP 16; TEMP 36.6; O2SAT 100
[2025-01-27 09:50] LABS: EDUAAPPEAR Cloudy; EDUABILI Negative (Negative); EDUABLOOD 3+ (Negative); EDUACOLOR1 Dark; EDUAGLUCOSE Negative (Negative); EDUAKETONE Negative (Negative); EDUALEUKO 3+ (Negative); EDUANITRATE Positive (Negative); EDUAPROTEIN Trace (Negative); EDUASPGRAVITY 1.025; EDUAUROBILI 0.2
--- NOTE | 2025-01-27 09:52 | ED_ITS ---
HPI - Female Genitourinary General Chief complaint: Urogenital-Female Stated complaint: UTI Time Seen by Provider: 01/27/25 09:47 Source: patient and RN notes reviewed Mode of arrival: ambulatory Limitations: no limitations History of Present Illness HPI Narrative: Patient presents today complaining of frequency, urgency, and suprapubic pressure. Symptoms began this morning. Wqxg-vgd-[id number] treatment prior to arrival. History of pyelonephritis in 2019. No recent antibiotic use. Related Data Allergies Allergy/AdvReac Type Severity Reaction Status Date / Time Sulfa (Sulfonamide Allergy Mild Unknown Verified 01/27/25 09:52 Antibiotics) Review of Systems Review of Systems: CONSTITUTIONAL: Denies body aches, fever, chills, or sweats. EYES: Denies visual changes, redness, or discharge. ENT: Denies rhinorrhea, congestion, sore throat, or otalgia. CARDIOVASCULAR: Denies chest pain, palpitations, or edema. RESPIRATORY: Denies cough or dyspnea. GASTROINTESTINAL: Denies abdominal pain, nausea, vomiting, or diarrhea. GENITOURINARY:+ frequency, urgency, suprapubic pressure. SKIN: Denies rash, itching, or wounds. MUSCULOSKELETAL: Denies back pain, joint pain, or myalgia. NEUROLOGIC: Denies headache, numbness, tingling, or weakness. PSYCH: Denies depression or anxiety. [facility] Past Medical History Medical History (Updated 01/27/25 @ 09:54 by Tiffany Roche, [facility], ) History of pyelonephritis Comments At time of signature, I have reviewed and agree with nursing past medical, surgical, social and family history unless otherwise noted. Please see nursing chart for further information. There is no relevant family history pertinent to the presenting complaint Exam Narrative: GENERAL: Well-appearing, well-nourished, and in no acute distress. HEAD: Normocephalic, atraumatic. EYES: EOMI. No redness or drainage. Conjunctivae normal. ENT: Mucous membranes pink and moist. NECK: Normal AROM. CHEST: No respiratory distress. Clear to auscultation. HEART: Regular rate and rhythm. No murmur appreciated. Normal peripheral pulses. ABDOMEN: Soft, nondistended, normal active bowel sounds.+ mild suprapubic tenderness without rebound or guarding.-CVAT EXTREMITIES: Normal range of motion. No edema. SKIN: Warm, dry, no rash. Capillary refill normal. NEURO: No focal deficits. Alert and oriented x3. Gait steady. PSYCH: Normal affect. No signs of depression or anxiety. Course Course Level of Care: Express Care Visit Vital Signs Vital signs: Vital Signs Temperature 97.9 F 01/27/25 09:43 Pulse Rate 68 01/27/25 09:43 Respiratory Rate 16 01/27/25 09:43 Blood Pressure 125/79 01/27/25 09:43 Pulse Oximetry 100 01/27/25 09:43 Oxygen Delivery Room Air 01/27/25 09:43 Temperature 97.9 F 01/27/25 09:43 Pulse Rate 68 01/27/25 09:43 Respiratory Rate 16 01/27/25 09:43 Blood Pressure 125/79 01/27/25 09:43 Pulse Oximetry 100 01/27/25 09:43 Oxygen Delivery Room Air 01/27/25 09:43 Reviewed MDM - Female Genitourinary MDM Narrative Medical decision making narrative: Urinalysis is consistent with UTI. Prescription for Augmentin sent to pharmacy. Culture pending. Anticipatory guidance given. Differential Diagnosis Differential diagnosis: Likely urinary tract infection, vaginitis, cystitis and other (Pyelonephritis) Lab Data Attestation: I reviewed the patient's lab results. Labs: Lab Results 01/27/25 Range/Units 09:48 POC Urine Color Dark POC Urine Clarity Cloudy POC Urine pH 6.0 POC Ur Specif [place] 1.025 POC Urine Protein Trace (Negative) POC Ur Glucose (UA) Negative (Negative) POC Urine Ketones Negative (Negative) POC Urine Blood 3+ (Negative) POC Urine Nitrite Positive (Negative) POC Urine Bilirubin Negative (Negative) POC Urine Urobilinogen 0.2 POC U Leukocyte Esteras 3+ (Negative) Critical Care Time Critical Care Time Critical Care Time: No Discharge Plan Discharge Clinical Impression: Urinary tract infection Qualifiers: Urinary tract infection type: acute cystitis Hematuria presence: with hematuria Qualified Code(s): N30.01 - Acute cystitis with hematuria Patient Disposition: Home Condition: Stable Instructions: Antibiotic Form, Urinary Tract Infection in Women (DC) Additional Instructions: Your urine shows infection today. Take Augmentin as prescribed until gone. Your urine will be sent of for a culture to identify what type of bacteria is causing your infection. If the culture shows that your medication will not get rid of your infection, you will be notified and a new antibiotic will be called in for you. If your symptoms worsen to include fever, sweats, chills, nausea, vo miting, severe abdominal or back pain, please go to the ER for further evaluation. Your blood pressure was elevated above 120/80 today at Urgent Care. This puts you above the threshold for follow up. Please schedule a followup visit with your personal physician as soon as possible, for further evaluation and treatment. Even blood pressure exceeding 120/80 may indicate pre-hypertension. Patient Language: Lebanese Prescriptions: New amoxicillin-pot clavulanate 875-125 mg tablet 1 tablet PO Q12H 7 Days Qty: 14 0RF Follow-up/Referrals: Marco A,Roma Shanks MD [Primary Care Provider] - Time of Disposition: 09:55
== END 2025-01-27 09:55 | disposition home or self-care (01) ==
PROVIDERS: Emergency Provider Nurse Practitioner; PCP Student in an Organized Health Care Education/Training Program
DX: N30.01 Acute cystitis with hematuria (principal)
CPT/HCPCS: 81003; 87086; 87186; 99213; G0463